=== PATIENT | female | born 1970 | race Caucasian/White ===

== ENCOUNTER 2021-01-17 13:14 | Outpatient (REF) | payer MEDICAID, SELFPAY ==
--- NOTE | 2021-01-17 10:30 | PAPFT_PTH ---
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
--- OUTSIDE RECORDS SUMMARY | 2021-01-17 13:28 | XMS_ITS ---
:1970 Author Care Team Providers Name Role Phone ANNALEE OMER General Surgeon [phone] GAYLE GLEASON Primary Care Provider [phone] Allergies Code Code System Name Reaction Severity Status Onset NKDA ? Medications Name Status Start Date Stop Date ? ? acetaminophen 300 mg-codeine 30 Active ? Not available mg tablet amoxicillin 500 mg capsule Completed 07/18/201407/18 1 (one) Cap: three times a day aspirin 81 mg tablet,delayed release Completed 09/05/2015 02/07/2016 1 (one) Tablet DR: daily calcipotriene 0.005 % topical cream Completed 12/11/2016 11/10/2017 1 (one) Application: bid - twice daily Chantix Continuing Month Box 1 Completed ? 0 04/07/2019 mg tablet Chantix Starting Month Box 0.5 Completed ? 0 04/07/2019 mg (11)-1 mg (42) tablets in dose pack ciprofloxacin 500 mg tablet Completed 04/07/201904/17 Take 500 mg twice a day by oral route for 5 days. clobetasol 0.05 % topical cream Completed 12/07/2016 11/10/2017 1 (one) Application: bid - twice daily Depo-Provera 150 mg/mL intramuscular suspension Completed 09/05/2015 11/10/2017 1 (one) Suspension: every 3 months Digest Probiotic (S.boulardii) 250 mg capsule Active ? Not available Take 1 capsule twice a day by oral route. gabapentin 100 mg capsule Completed 02/07/20162015 1 (one) Capsule: three times a day Golytely 236 gram-22.74 gram-6.74 gram-5.86 gram oral soluti on Completed 09/23/2015 02/07/2016 1 (one) For Solution For Solution: As directed hydrocodone 5 mg-acetaminophen Completed ? 0 11/30/2018 325 mg tablet hydromorphone 2 mg tablet Completed ? 03/05/ 2019 levothyroxine 125 mcg tablet Completed 08/15/2015 1 (one) Tablet Tablet: daily levothyroxine 150 mcg tablet Completed ? 12/2018 levothyroxine 175 mcg tablet Active ? Not available Take 1 tablet by mouth once daily for 90 days liothyronine 5 mcg tablet Active ? Not av ailable Take 1 tablet twice a day by oral route for 90 days. methocarbamol 500 mg tablet Completed ? 11/14 metoclopramide 10 mg tablet Completed 10/06/201610/15 1 (one) Tablet: see comments metronidazole 500 mg tablet Active ? Not available naproxen sodium 220 mg capsule Completed 09/05/2015 0 02/07/2016 2 (two) Capsule: bid - twice daily omeprazole 20 mg capsule,delayed release Completed 016 02/07/2016 1 (one) Capsule DR: daily Pain Relief (acetaminophen) 650 mg tablet,extended release Compl eted 08/27/2015 02/07/2016 1 (one) Tablet ER Tablet ER: every six hours, as needed prednisone 10 mg tablet Active ? Not avai lable prednisone 50 mg tablet Completed 02/07/2016 02/12/20 16 1 (one) Tablet: daily Sennacon 8.6 mg tablet Completed ? 9 Take 2 tablets every day by oral route as needed. vancomycin 125 mg capsule Active ? Not av ailable venlafaxine ER 37.5 mg capsule,extended release 24 hr Completed 04/07/2019 05/09/2019 Take 1 capsule every day by oral route for 90 days. venlafaxine ER 37.5 mg tablet,extended release 24 hr Completed ? 04/07/2019 Take 1 tablet every day by oral route for 90 days. Vitamin D2 Completed ? 04/07/2019 5,000 units po daily Vitamin D2 1,250 mcg (50,000 unit) capsule Completed ? 11/30/2018 Take 1 capsule every day by oral route. Vitamin D3 125 mcg (5,000 unit) tablet Active 9 Not available Take 1 tablet every day by oral route. Zithromax 250 mg tablet Completed 11/28/2015 12/02/19 16 1 (one) Tablet: daily Notes: med rec completed 04/06/19 -mso Problems Name Status Onset Date Source ? Menopause Active 02/08/2019 ? Colitis Active 05/09/2019 ? 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 Hypothyroidism Active ? History Rachel-William Syndrome Active ? History Insomnia Active ? History Pharyngitis Unknown ? History Gastritis Active ? History Irritable Bowel Syndrome Characterized Active ? History by Constipation Functional Diarrhea Active ? History Celiac Disease Active ? History Psoriasis Active ? History Backache Active ? History Generalized Hyperhidrosis Active ? Histor y Anesthesia of Skin Unknown ? History Flushing Unknown ? History Chest Pain Active ? History Heartburn Active ? History Dysphagia Active ? History Care Unknown ? History Family Planning Surveillance Active ? His tory Contraception Care Management Unknown ? Hi story Adult Health Examination Unknown ? History Screening for Cardiovascular System Unknown ? History Disease Procedure by Method Unknown ? History Pain of Right Shoulder Joint Active ? His tory Right Side Sciatica Active ? History Contraception Care Unknown ? History Cyst of Right Breast Active ? History Procedures Date Name Performed by ? 04/06/2019 Colonoscopy Information not avai lable Notes: polyp of colon, colitis. 10/14 in [place], [place] 09/27/2018 Appendectomy Laparoscopic Information no t available 06/09/2016 Egd Information not avai lable Notes: LA Grade A reflux esophagitis ? Tubal Ligation Information not avai lable Notes: (1996) 10/18/2018 MAMMO, Screening, Tomosynthesis, [facility] (Internal) Bilateral [address] [place] [address] (Work Place) 09/21/2019 MAMMO, Screening, Tomosynthesis, [facility] (Internal) Bilateral [address] [place] [address] (Work Place) 08/21/2020 MAMMO, Screening, Tomosynthesis, [facility] (Internal) Bilateral [address] [place] [address] (Work Place) Results Lab Results Date Name Specimen Result Interpretation Description Value Range Status Address ? 08/19/2020 TSH, Serum S Low Tsh <0.05 0.47-4.68 Final [place] or Plasma u[IU]/mL u[IU]/mL [facility] L ab (Internal) : [address] 08/19/2020 T4, Free, S ? Ft4 1.93 NG/dL 0.78-2.19 Fin [place] Serum NG/dL [facility] L ab (Internal) : [address] 08/19/2020 T3, Total, S ? T3, 163 NG/dL 97-169 Final [place] Serum Total NG/dL [facility] L ab (Internal) : [address] 08/31/2019 Lactoferrin STL - Lactof negative negative Fin al [place] , severo, [facility] , Stool by (Internal ): Jade [address] 06/17/2019 CBC W/ Auto BLD - Wbc 8.1 10*3/uL 5.0-10.0 F inal [place] Diff 10*3/uL [facility] L ab (Internal) : [address] ? ? BLD - Rbc 4.72 10*6/uL 4.10-5.30 Final N orth 10*6/uL [facility] L ab (Internal) : [address] ? ? BLD - Hgb 15.2 g/dL 12.0-16.0 Final Nort h g/dL [facility] L ab (Internal) : [address] ? ? BLD - Hct 45.5 % 37.0-47.0 Final [facility] L ab (Internal) : [address] ? ? BLD High Mcv 96.4 fL 80.0-96.0 Final [facility] L ab (Internal) : [address] ? ? BLD High Mch 32.2 pg 26.0-32.[address] [facility] L ab (Internal) : [address] ? ? BLD - Mchc 33.4 g/dL 31.0-35.0 Final Nort h g/dL [facility] L ab (Internal) : [address] ? ? BLD - Rdw 12.2 % 11.5-14.5 Final [facility] L ab (Internal) : [address] ? ? BLD - Plt 337 10*3/uL 130-450 Final Nort h 10*3/uL [facility] (Internal[facility] : [address] ? ? BLD - Anc 4.19 10*3/uL ? Final Nort h [facility] L ab (Internal) : [address] [place] t ? ? BLD - Neutro 51.9 % 40.0-75.0 Final [facility] L ab (Internal) : [address], [place] ? ? BLD - Lymph 34.9 % 20.0-50.0 Final [facility] L ab (Internal) : [address], [place] t ? ? BLD - [place] 5.4 % 2.0-10.0 % Final [facility] L ab (Internal) : [address] ? ? BLD - Eos 5.8 % 1.0-6.0 % Final [facility] L ab (Internal) : [address] ? ? BLD High Baso 1.6 % 0.0-1.0 % Final [facility] L [facility] (Internal) : [address] ? ? BLD - Ig 0.4 % 0.0-0.9 % Final [facility] (Internal) : [address], [place] t 06/17/2019 CMP, Serum S - g/r 93 mg/dL 74-106 Final North or Plasma mg/dL [facility] L ab (Internal) : [address], [place] ? ? S High Bun 20 mg/dL 7-17 mg/dL Final Nort h [facility] L ab (Internal) : [address] ? ? S - Crea 0.60 mg/dL 0.52-1.04 Final Nor th mg/dL [facility] L ab (Internal) : [address] ? ? S - Ca 9.5 mg/dL 8.4-10.2 Final North mg/dL [facility] L ab (Internal) : [address] ? ? S - Na 138 mmol/L 137-145 Final North mmol/L [facility] L ab (Internal) : [address] ? ? S - K 4.3 mmol/L 3.5-5.1 Final North mmol/L [facility] L ab (Internal) : [address] [place] t ? ? S - Cl 101 mmol/L 98-107 Final [place] mmol/L [facility] L ab (Internal) : [address] ? ? S - Tco2 28.0 mmol/L 22.0-30.0 Final No rth mmol/L [facility] L ab (Internal) : [address] [place] t ? ? S - Tp 7.5 g/dL 6.3-8.2 Final [place] g/dL [facility] L ab (Internal) : [address] [place] t ? ? S - Alb 4.1 g/dL 3.5-5.0 Final [place] g/dL [facility] L ab (Internal) : [address] [place] t ? ? S - Tbil 0.5 mg/dL 0.2-1.3 Final [place] mg/dL [facility] L ab (Internal) : [address], [place] t ? ? S - Alp 84 U/L 50-136 U/L Final [facility] L ab (Internal) : [address] [place] t ? ? S - Alt 34 U/L 9-52 U/L Final [place] (Sgpt) [facility] L [facility] (Internal) : [address], [place] t ? ? S - Ast 31 U/L 14-36 U/L Final [place] (Sgot) [facility] L [facility] (Internal) : [address] 06/17/2019 ESR BLD - Esr 1 mm/h 0-30 mm/h Final Nor th (Erythrocyt Count ry e Hospital L ab Sedimentati (Inte rnal): on Rate), [address] [place] t 06/06/2019 C Diff STOOL ABNORMA C. positive negative Final N orth Toxin L Diff [facility], ([facility] Hospital L ab Qual, PCR, (Inter nal): Stool [address] 05/11/2019 Fecal STL - Occ negative negative Final No rth Occult Bld [facility] Blood, Hospital L ab Stool (Internal) : [address] 05/11/2019 Enteric STL - [place] see comments ? Final [place] Bacteria, jason [facility] Organism PCR Hospital Lab Specific (Interna l): Culture, [address] ? ? STL - Shigel see comments ? Final Nor th la PCR [facility] L ab (Internal) : [address] ? ? STL - Campyl see comments ? Final Nor th obacter [facility] L ab (Internal) : [address] ? ? STL - Shiga see comments ? Final Nort h Toxin [facility] (Internal) : [address] 05/11/2019 Ova + STL - Specim (see note) ? Final N orth Parasites, en Countr y [facility] Lab Microscopy, tion (Inte rnal): Stool [address] t ? ? STL - Result (see note) ? Final [facility] ab (Internal) : [address] t ? ? STL - Report (see note) ? Final [facility] (Internal) : [address] 05/11/2019 C Diff STOOL ABNORMA C. positive negative Final N orth Toxin L Diff [facility], ([facility] Hospital ab Qual, PCR, (Inter nal): Stool [address] 05/10/2019 CBC W/ Auto BLD - Wbc 8.2 10*3/uL 5.0-10.0 F inal [place] Diff 10*3/uL [facility] ab (Internal) : [address] ? ? BLD - Rbc 4.58 10*6/uL 4.10-5.30 Final N orth 10*6/uL [facility] ab (Internal) : [address] ? ? BLD - Hgb 14.8 g/dL 12.0-16.0 Final Nort h g/dL [facility] ab (Internal) : [address] [place] t ? ? BLD - Hct 44.4 % 37.0-47.0 Final [place] % [facility] ab (Internal) : [address] [place] t ? ? BLD High Mcv 96.9 fL 80.0-96.0 Final [facility] ab (Internal) : [address] [place] t ? ? BLD High Mch 32.3 pg 26.0-32.0 Final [facility] pg [facility] (Internal) : [address] ? ? BLD - Mchc 33.3 g/dL 31.0-35.0 Final Nort h g/dL [facility] L ab (Internal) : [address] ? ? BLD - Rdw 12.2 % 11.5-14.5 Final [facility] L ab (Internal) : [address] ? ? BLD - Plt 318 10*3/uL 130-450 Final Nort h 10*3/uL [facility] L ab (Internal) : [address], [place] ? ? BLD - Anc 5.32 10*3/uL ? Final Nort [facility] L ab (Internal) : [address] ? ? BLD - Neutro 64.7 % 40.0-75.0 Final [facility] L ab (Internal) : [address] ? ? BLD - Lymph 20.7 % 20.0-50.0 Final [facility] L ab (Internal) : [address], [place] ? ? BLD - [place] 7.9 % 2.0-10.0 % Final [facility] L ab (Internal) : [address] ? ? BLD - Eos 5.2 % 1.0-6.0 % Final [facility] L ab (Internal) : [address] ? ? BLD High Baso 1.1 % 0.0-1.0 % Final [facility] L ab (Internal) : [address] ? ? BLD - Ig 0.4 % 0.0-0.9 % Final [facility] L ab (Internal) : [address] t 05/10/2019 CMP, Serum S - g/r 104 mg/dL 74-106 Final North or Plasma mg/dL [facility] L ab (Internal) : [address] ? ? S - Bun 12 mg/dL 7-17 mg/dL Final Nort h [facility] L ab (Internal) : [address] ? ? S - Crea 0.60 mg/dL 0.52-1.04 Final [facility] th mg/dL [facility] (Internal) : [address] ? ? S - Ca 9.4 mg/dL 8.4-10.2 Final [place] mg/dL [facility] (Internal) : [address] ? ? S - Na 140 mmol/L 137-145 Final [place] mmol/L [facility] (Internal) : [address] ? ? S - K 4.2 mmol/L 3.5-5.1 Final [place] mmol/L [facility] (Internal) : [address] ? ? S - Cl 105 mmol/L 98-107 Final [place] mmol/L [facility] (Internal) : [address] ? ? S - Tco2 27.0 mmol/L 22.0-30.0 Final No rth mmol/L [facility] (Internal) : [address] t ? ? S - Tp 7.4 g/dL 6.3-8.2 Final [place] g/dL [facility] (Internal) : [address] ? ? S - Alb 4.2 g/dL 3.5-5.0 Final [place] g/dL [facility] (Internal) : [address] ? ? S - Tbil 1.2 mg/dL 0.2-1.3 Final [place] mg/dL [facility] (Internal) : [address] ? ? S - Alp 83 U/L 50-136 U/L Final [facility] L ab (Internal) : [address] ? ? S - Alt 35 U/L 9-52 U/L Final [place] (Sgpt) [facility] L ab (Internal) : [address] ? ? S - Ast 27 U/L 14-36 U/L Final [place] (Sgot) [facility] L [facility] (Internal) : [address] t 05/10/2019 CRP, High S High Rcrp 0.33 mg/dL 0.10-0.30 Fin al [place] Sensitivity mg/dL Count ry , Serum or Hospit al Lab Plasma (Internal) : [address] 04/07/2019 Cbc BLD - Wbc 6.9 10*3/uL 5.0-10.0 Final North 10*3/uL [facility] L ab (Internal) : [address] ? ? BLD Low Rbc 3.71 10*6/uL 4.10-5.30 Final N orth 10*6/uL [facility] L ab (Internal) : [address] ? ? BLD - Hgb 12.1 g/dL 12.0-16.0 Final Nort h g/dL [facility] L ab (Internal) : [address] ? ? BLD Low Hct 36.1 % 37.0-47.0 Final [facility] L ab (Internal) : [address] ? ? BLD High Mcv 97.3 fL 80.0-96.0 Final [facility] L ab (Internal) : [address] ? ? BLD High Mch 32.6 pg 26.0-32.0 Final [facility] L ab (Internal) : [address] ? ? BLD - Mchc 33.5 g/dL 31.0-35.0 Final Nort h g/dL [facility] L ab (Internal) : [address] ? ? BLD - Rdw 12.1 % 11.5-14.5 Final [facility] L ab (Internal) : [address] ? ? BLD - Plt 244 10*3/uL 130-450 Final Nort h 10*3/uL [facility] L ab (Internal) : [address] ? ? BLD - Anc 3.96 10*3/uL ? Final Nort h [facility] L ab (Internal) : [address] 04/07/2019 BMP, Serum S - g/r 101 mg/dL 74-106 Final North or Plasma mg/dL [facility] L ab (Internal) : [address] ? ? S Low Bun <3 mg/dL 7-17 mg/dL Final Nort h [facility] L ab (Internal) : [address] ? ? S Low Crea 0.50 mg/dL 0.52-1.04 Final [facility] mg/dL [facility] (Internal) : [address] ? ? S - Ca 8.4 mg/dL 8.4-10.2 Final North mg/dL [facility] L ab (Internal) : [address] t ? ? S - Na 141 mmol/L 137-145 Final North mmol/L [facility] L ab (Internal) : [address] ? ? S - K 3.6 mmol/L 3.5-5.1 Final North mmol/L [facility] L ab (Internal) : [address] t ? ? S High Cl 110 mmol/L 98-107 Final [place] mmol/L [facility] L ab (Internal) : [address] ? ? S - Tco2 27.0 mmol/L 22.0-30.0 Final No rth mmol/L [facility] (Internal) : [address] 04/06/2019 Cbc BLD - Wbc 7.5 10*3/uL 5.0-10.0 Final [place] 10*3/uL [facility] (Internal) : [address] ? ? BLD Low Rbc 3.65 10*6/uL 4.10-5.30 Final N orth 10*6/uL [facility] (Internal) : [address] t ? ? BLD Low Hgb 11.9 g/dL 12.0-16.0 Final Nort h g/dL [facility] L ab (Internal) : [address] ? ? BLD Low Hct 35.5 % 37.0-47.0 Final [place] % [facility] L [facility] (Internal) : [address] ? ? BLD High Mcv 97.3 fL 80.0-96.0 Final [place] fL [facility] L [facility] (Internal) : [address] ? ? BLD High Mch 32.6 pg 26.0-32.0 Final [place] pg [facility] L ab (Internal) : [address] ? ? BLD - Mchc 33.5 g/dL 31.0-35.0 Final Nort h g/dL [facility] L ab (Internal) : [address] ? ? BLD - Rdw 12.3 % 11.5-14.5 Final [facility] % [facility] (Internal) : [address] ? ? BLD - Plt 243 10*3/uL 130-450 Final Nort h 10*3/uL [facility] (Internal) : [address] ? ? BLD - Anc 4.01 10*3/uL ? Final Nort [facility] (Internal) : [address] 04/06/2019 BMP, Serum S - g/r 103 mg/dL 74-106 Final North or Plasma mg/dL [facility] (Internal) : [address] ? ? S - Bun 7 mg/dL 7-17 mg/dL Final [facility] L ab (Internal) : [address] ? ? S - Crea 0.60 mg/dL 0.52-1.04 Final Nor th mg/dL [facility] L ab (Internal) : [address] ? ? S - Ca 8.4 mg/dL 8.4-10.2 Final [place] mg/dL [facility] (Internal) : [address] ? ? S - Na 138 mmol/L 137-145 Final North mmol/L [facility] L [facility] (Internal) : [address] ? ? S - K 3.7 mmol/L 3.5-5.1 Final North mmol/L [facility] L ab (Internal) : [address] ? ? S High Cl 109 mmol/L 98-107 Final North mmol/L [facility] L [facility] (Internal) : [address] ? ? S - Tco2 24.0 mmol/L 22.0-30.0 Final No rth mmol/L [facility] (Internal) : [address] 04/06/2019 Pathology TISS - Report results ? Final N orth Study below [facility] (Internal) : [address] 04/05/2019 CBC W/ Auto BLD High Wbc 13.3 10*3/uL 5.0-10.0 Final North Diff 10*3/uL [facility] L ab (Internal) : [address] ? ? BLD - Rbc 4.77 10*6/uL 4.10-5.30 Final N orth 10*6/uL [facility] (Internal) : [address] ? ? BLD - Hgb 15.3 g/dL 12.0-16.0 Final Nort h g/dL [facility] L ab (Internal) : [address] ? ? BLD - Hct 45.3 % 37.0-47.0 Final North % [facility] L ab (Internal) : [address] ? ? BLD - Mcv 95.0 fL 80.0-96.0 Final [facility] L ab (Internal) : [address] ? ? BLD High Mch 32.1 pg 26.0-32.0 Final [facility] L ab (Internal) : [address] ? ? BLD - Mchc 33.8 g/dL 31.0-35.0 Final Nort h g/dL [facility] L [facility] (Internal) : [address] ? ? BLD - Rdw 12.4 % 11.5-14.5 Final [facility] L ab (Internal) : [address] ? ? BLD - Plt 335 10*3/uL 130-450 Final Nort h 10*3/uL [facility] L ab (Internal) : [address] ? ? BLD - Anc 9.56 10*3/uL ? Final Nort h [facility] L ab (Internal) : [address] ? ? BLD - Neutro 72.1 % 40.0-75.0 Final [facility] L ab (Internal) : [address] ? ? BLD - Lymph 20.2 % 20.0-50.0 Final [facility] L ab (Internal) : [address] ? ? BLD - [place] 4.5 % 2.0-10.0 % Final [facility] L ab (Internal) : [address] ? ? BLD - Eos 1.9 % 1.0-6.0 % Final [facility] L ab (Internal) : [address] ? ? BLD - Baso 0.8 % 0.0-1.0 % Final [facility] L ab (Internal) : [address] ? ? BLD - Ig 0.5 % 0.0-0.9 % Final [facility] L [facility] (Internal) : [address] 04/05/2019 CMP, Serum S - g/r 101 mg/dL 74-106 Final North or Plasma mg/dL [facility] (Internal) : [address] ? ? S - Bun 14 mg/dL 7-17 mg/dL Final Nort [facility] (Internal) : [address] ? ? S - Crea 0.60 mg/dL 0.52-1.04 Final Nor th mg/dL [facility] (Internal) : [address] ? ? S - Ca 9.6 mg/dL 8.4-10.2 Final [place] mg/dL [facility] (Internal) : [address] ? ? S - Na 140 mmol/L 137-145 Final [place] mmol/L [facility] (Internal) : [address] ? ? S - K 3.9 mmol/L 3.5-5.1 Final [place] mmol/L [facility] (Internal) : [address] ? ? S - Cl 106 mmol/L 98-107 Final [place] mmol/L [facility] (Internal) : [address] ? ? S - Tco2 26.0 mmol/L 22.0-30.0 Final No rth mmol/L [facility] (Internal) : [address] ? ? S - Tp 7.6 g/dL 6.3-8.2 Final [place] g/dL [facility] (Internal) : [address] ? ? S - Alb 4.3 g/dL 3.5-5.0 Final [facility] g/dL [facility] (Internal) : [address] ? ? S High Tbil 1.4 mg/dL 0.2-1.3 Final [place] mg/dL [facility] (Internal) : [address] ? ? S - Alp 100 U/L 50-136 U/L Final [facility] L ab (Internal) : [address] ? ? S - Alt 34 U/L 9-52 U/L Final [place] (Sgpt) [facility] L [facility] (Internal) : [address] ? ? S - Ast 36 U/L 14-36 U/L Final [place] (Sgot) [facility] L [facility] (Internal) : [address] 04/05/2019 Urinalysis, UR - UA-col yellow pale Final [place] Dipstick, or yellow [facility] L ab Micro (Internal) : [address] ? ? UR - UA-kranthi clear clear Final [facility] Hospital L ab (Internal) : [address] ? ? UR - UA-spe 1.010 1.003-1.03 Final [facility] Grav [address] [facility] L ab (Internal) : [address] ? ? UR - UA-pH 6.0 [pH] 4.6-8.0 Final [place] [pH] [facility] L ab (Internal) : [address] t ? ? UR - UA-brock negative negative Final [place] k Est [facility] L ab (Internal) : [address] t ? ? UR - UA-nit negative negative [facility] : [address] t ? ? UR - UA-pro negative negative Final [facility] L ab (Internal) : [address] t ? ? UR - UA-glu negative negative Final [place] c [facility] L ab (Internal) : [address] t ? ? UR - UA-ket negative negative Final [facility] L ab (Internal) : [address] t ? ? UR - UA-uro normal normal Final [facility] Hospital L ab (Internal) : [address] t ? ? UR - UA-parrish negative negative Final [place] i [facility] L ab (Internal) : [address] t ? ? UR - UA-blo negative negative Final [place] od [facility] L ab (Internal) : [address] 04/05/2019 C Diff STL - C. negative negative Final No rth Toxin Diff [facility], ([facility] Hospital L ab Qual, PCR, (Inter nal): Stool [address] 04/05/2019 Enteric STL - [place] see comments ? Final [place] Bacteria, jason Country Organism PCR Hospital Lab Specific (Interna l): Culture, [address] t ? ? STL - Shig[place] see comments ? Final Nor th la PCR [facility] L ab (Internal) : [address] t ? ? STL - Campyl see comments ? Final Nor th obacter [facility] L ab (Internal) : [address] t ? ? STL - Shiga see comments ? Final Nort h Toxin [facility] L ab (Internal) : [address] 02/01/2019 CMP, Serum S - g/r 92 mg/dL 74-106 Final North or Plasma mg/dL [facility] L ab (Internal) : [address] t ? ? S - Bun 13 mg/dL 7-17 mg/dL Final [facility] L ab (Internal) : [address] ? ? S - Crea 0.70 mg/dL 0.52-1.04 Final [facility] mg/dL [facility] L ab (Internal) : [address] t ? ? S - Ca 9.4 mg/dL 8.4-10.2 Final North mg/dL [facility] L ab (Internal) : [address] t ? ? S - Na 139 mmol/L 137-145 Final North mmol/L [facility] L ab (Internal) : [address] t ? ? S - K 4.1 mmol/L 3.5-5.1 Final North mmol/L [facility] L ab (Internal) : [address] t ? ? S - Cl 104 mmol/L 98-107 Final North mmol/L [facility] L ab (Internal) : [address] t ? ? S - Tco2 29.0 mmol/L 22.0-30.0 Final No rth mmol/L [facility] L ab (Internal) : [address] ? ? S - Tp 7.4 g/dL 6.3-8.2 Final [place] g/dL [facility] L ab (Internal) : [address] [facility] ? ? S - Alb 4.2 g/dL 3.5-5.0 Final [place] g/dL [facility] L ab (Internal) : [address] [facility] ? ? S - Tbil 0.8 mg/dL 0.2-1.3 Final [place] mg/dL [facility] L ab (Internal) : [address] ? ? S - Alp 87 U/L 50-136 U/L Final [facility] L ab (Internal) : [address] ? ? S - Alt 24 U/L 9-52 U/L Final [place] (Sgpt) [facility] L ab (Internal) : [address], Adelina t ? ? S High Ast 40 U/L 14-36 U/L Final [place] (Sgot) [facility] L ab (Internal) : [address], [facility] 02/01/2019 TSH, Serum S Low Tsh <0.05 0.47-4.68 Final [place] or Plasma u[IU]/mL u[IU]/mL [facility] L ab (Internal) : [address] [facility] 02/01/2019 T4, Free, S - Ft4 1.13 NG/dL 0.78-2.19 Fin al [place] Serum NG/dL [facility] L ab (Internal) : [address], [facility] 02/01/2019 FSH S - Fsh 122.3 mIU/mL ? Final North (Follicle-s Count ry timulating Hospit al Lab Hormone), ([employer] Sales Rep al): Serum [address] [facility] 02/01/2019 Lh S - Lh 42.8 mIU/mL ? Final N orth (Luteinizin Count ry g Hormone), Hospi roderick Lab Serum (Internal) : [address] [facility] 02/01/2019 T3, Total, S - T3, 113 NG/dL 97-169 Final [place] Serum Total NG/dL [facility] L [facility] (Internal[facility] : [address] 02/01/2019 Prolactin, S - Prolac 6.5 NG/mL ? Final [place] Serum tin [facility] L ab (Internal) : [address] 02/01/2019 Venipunctur Blood ? Locati Left ? ? P_nc Primary e veno on Antecubital Care us [place]/Orl ea ns: [address], [place] ? ? Blood ? Needle 21g ? ? P_nc Prim yudy veno Vacutainer Care us [place]/Orl ea ns: [address], [place] ? ? Blood ? Number 1 ? ? P_nc Prim yudy veno of Care us Attempt [place]/Or yue s ns: [address], [place] ? ? Blood ? Succes Yes ? ? P_nc Prim yudy veno sful Care us [place]/Orl ea ns: [address], [place] ? ? Blood ? Dressi Pressure ? ? P_nc Pr imary veno ng Band-aid Care us Applied [place]/Or yue ns: [address], [place] ? ? Blood ? Initia cs ? ? P_nc Prim yudy veno ls Care us [place]/Orl ea ns: [address], [place] 11/13/2018 Urinalysis, UR - UA-col yellow pale Final [place] Dipstick, or yellow [facility] Hospital L ab Micro (Internal) : [address] ? ? UR ABNORMA UA-kranthi cloudy clear Final [facility] ear [facility] L ab (Internal) : [address] ? ? UR - UA-spe 1.015 1.003-1.03 Final [place] c Grav 5 [facility] L ab (Internal) : [address] ? ? UR - UA-pH 7.5 [pH] 4.6-8.0 Final [place] [pH] [facility] L ab (Internal) : [address] ? ? UR - UA-brock negative negative Final [place] k Est [facility] L ab (Internal) : [address] ? ? UR - UA-nit negative negative Final [place] rite [facility] L ab (Internal) : [address] t ? ? UR - UA-pro negative negative Final [place] t [facility] L ab (Internal) : [address] t ? ? UR - UA-glu negative negative Final [place] c [facility] ab (Internal) : [address] t ? ? UR - UA-ket negative negative Final [place] one [facility] ab (Internal) : [address] t ? ? UR - UA-uro normal normal Final [place] parrish [facility] L ab (Internal) : [address] t ? ? UR - UA-parrish negative negative Final [place] i [facility] L ab (Internal) : [address] t ? ? UR - UA-blo negative negative Final [place] od [facility] L ab (Internal) : [address] 11/13/2018 UR - Hcgu negative negative Final [place] Test, Urine Count [facility] ab (Internal) : [address] 11/13/2018 Urinalysis, UR - UA-WBC 0-3 [hpf] 0-3 [hpf] F inal [place] Microscopic Count [facility] L ab (Internal) : [address] t ? ? UR - UA-RBC 0-2 [hpf] 0-2 [hpf] Final Nor [facility] L ab (Internal) : [address] t ? ? UR ABNORMA UA-bertha few [hpf] none seen Final No rth L teria [hpf] [facility] ab (Internal) : [address] t ? ? UR ABNORMA UA-epi moderate none seen Final Nor th L thelial [hpf] [hpf] [facility] ab (Internal) : [address] t ? ? UR - UA-muc none seen none seen Final Nor th us [hpf] [hpf] [facility] ab (Internal) : [address] t ? ? UR - Amorph many [hpf] ? Final [facility] ab (Internal) : [address] 11/13/2018 Culture UR - Final microbiology ? Final [place] ([place] results Country Count), Hospital Lab Urine (Internal) : [address] 10/19/2018 Thyroid S Low Tsh <0.02 0.47-4.68 Final No rth [place], u[IU]/mL u[IU]/mL Coun [facility] Hospital L ab (Internal) : [address] Adelina t 10/19/2018 T4, Free, S - Ft4 1.88 NG/dL 0.78-2.19 Fin [facility] Serum NG/dL [facility] L ab (Internal) : [address] vincent 09/27/2018 CBC W/ Auto BLD High Wbc 14.9 10*3/uL 5.0-10.0 Final [place] Diff 10*3/uL [facility] L ab (Internal) : [address] [place] ? ? BLD - Rbc 4.97 10*6/uL 4.10-5.30 Final N orth 10*6/uL [facility] L ab (Internal) : [address] [place] ? ? BLD - Hgb 15.8 g/dL 12.0-16.0 Final Nort h g/dL [facility] L ab (Internal) : [address] t ? ? BLD High Hct 48.3 % 37.0-47.0 Final [facility] L ab (Internal) : [address] ? ? BLD High Mcv 97.2 fL 80.0-96.0 Final [facility] L ab (Internal) : [address] ? ? BLD - Mch 31.8 pg 26.0-32.[address] [facility] L ab (Internal) : [address] [place] ? ? BLD - Mchc 32.7 g/dL 31.0-35.0 Final Nort h g/dL [facility] L ab (Internal) : [address] ? ? BLD - Rdw 12.9 % 11.5-14.5 Final [facility] L ab (Internal) : [address] [place] ? ? BLD - Plt 377 10*3/uL 130-450 Final Nort h 10*3/uL [facility] L ab (Internal) : [address] ? ? BLD - Anc 11.83 ? Final North 10*3/uL [facility] L ab (Internal) : [address] t ? ? BLD High Neutro 79.4 % 40.0-75.0 Final [facility] (Internal[facility] : [address] t ? ? BLD Low Lymph 12.1 % 20.0-50.0 Final [facility] L [facility] (Internal) : [address] t ? ? BLD - [place] 5.0 % 2.0-10.0 % Final [facility] L ab (Internal) : [address] t ? ? BLD - Eos 2.3 % 1.0-6.0 % Final [facility] L ab (Internal) : [address] t ? ? BLD - Baso 0.9 % 0.0-1.0 % Final [facility] L ab (Internal) : [address] t ? ? BLD - Ig 0.3 % 0.0-0.9 % Final [facility] L ab (Internal) : [address] t 09/27/2018 CMP, Serum S High g/r 139 mg/dL 74-106 Final [place] or Plasma mg/dL [facility] L [facility] (Internal) : [address] t ? ? S - Bun 13 mg/dL 7-17 mg/dL Final [facility] (Internal) : [address] t ? ? S - Crea 0.60 mg/dL 0.52-1.04 Final Nor th mg/dL [facility] L ab (Internal) : [address] t ? ? S - Ca 9.4 mg/dL 8.4-10.2 Final [place] mg/dL [facility] L ab (Internal) : [address] t ? ? S - Na 139 mmol/L 137-145 Final [place] mmol/L [facility] L ab (Internal) : [address] t ? ? S - K 4.3 mmol/L 3.5-5.1 Final [place] mmol/L [facility] L [facility] (Internal) : [address] t ? ? S - Cl 100 mmol/L 98-107 Final [place] mmol/L [facility] L ab (Internal) : [address] t ? ? S - Tco2 27.0 mmol/L 22.0-30.0 Final No rth mmol/L [facility] L ab (Internal) : [address] ? ? S - Tp 7.8 g/dL 6.3-8.2 Final [place] g/dL [facility] L ab (Internal) : [address] ? ? S - Alb 4.6 g/dL 3.5-5.0 Final [place] g/dL [facility] L ab (Internal) : [address] ? ? S - Tbil 0.8 mg/dL 0.2-1.3 Final [place] mg/dL [facility] L ab (Internal) : [address] ? ? S - Alp 90 U/L 50-136 U/L Final [facility] L ab (Internal) : [address] ? ? S - Alt 25 U/L 9-52 U/L Final [place] (Sgpt) [facility] L ab (Internal) : [address] ? ? S - Ast 28 U/L 14-36 U/L Final [place] (Sgot) [facility] L ab (Internal) : [address] 09/27/2018 Lipase, S - Lip 109 U/L 23-300 U/L Final [place] Serum or [facility] Plasma Hospital L ab (Internal) : [address] 09/27/2018 Urinalysis, UR - UA-col yellow pale Final [place] Dipstick, or yellow [facility] L [facility] Micro (Internal) : [address] ? ? UR - UA-kranthi clear clear Final [place] ear [facility] L ab (Internal) : [address] ? ? UR - UA-spe <=1.005 1.003-1.03 Final Nort h c Grav 5 [facility] L ab (Internal) : [address] ? ? UR - UA-pH 8.0 [pH] 4.6-8.0 Final [place] [pH] [facility] L ab (Internal) : [address] ? ? UR - UA-brock negative negative Final [place] k Est [facility] L ab (Internal) : [address], [place] ? ? UR - UA-nit negative negative Final [place] rite [facility] L ab (Internal) : [address] t ? ? UR - UA-pro negative negative Final [place] t [facility] L ab (Internal) : [address] t ? ? UR - UA-glu negative negative Final [place] c [facility] L ab (Internal) : [address] t ? ? UR - UA-ket negative negative Final [place] one [facility] L ab (Internal) : [address] t ? ? UR - UA-uro normal normal Final [place] parrish [facility] L ab (Internal) : [address] t ? ? UR - UA-parrish negative negative Final [place] i [facility] L ab (Internal) : [address] t ? ? UR ABNORMA UA-blo small negative Final [facility] od [facility] L ab (Internal) : [address] 09/27/2018 Urinalysis, UR - UA-WBC 0-3 [hpf] 0-3 [hpf] F inal [place] Microscopic Count [facility] L ab (Internal) : [address] t ? ? UR - UA-RBC 0-2 [hpf] 0-2 [hpf] Final Nor [facility] L ab (Internal) : [address] ? ? UR ABNORMA UA-bertha few [hpf] none seen Final No rth L teria [hpf] [facility] ab (Internal) : [address] ? ? UR ABNORMA UA-epi few [hpf] none seen Final No rth L thelial [hpf] [facility] ab (Internal) : [address] t ? ? UR - UA-muc none seen none seen Final Nor us [hpf] [hpf] [facility] ab (Internal) : [address] 09/27/2018 Culture UR - Final microbiology ? Final [place] ([place] results Country Count), Hospital Lab Urine (Internal) : [address] 09/27/2018 UR - Hcgu negative negative Final [place] Test, Urine Count [facility] ab (Internal) : [address] 09/27/2018 Pathology TISS - Report results ? Correcte d [place] Study below [facility] L ab (Internal) : [address] Adelina vincent 07/19/2018 CBC W/ Auto BLD High Wbc 13.3 10*3/uL 5.0-10.0 Final [place] Diff 10*3/uL [facility] L ab (Internal) : [address] ? ? BLD - Rbc 4.50 10*6/uL 4.10-5.30 Final N orth 10*6/uL [facility] L ab (Internal) : [address] ? ? BLD - Hgb 14.4 g/dL 12.0-16.0 Final Nort h g/dL [facility] L ab (Internal) : [address] [place] ? ? BLD - Hct 44.1 % 37.0-47.0 Final [facility] L ab (Internal) : [address] [place] ? ? BLD High Mcv 98.0 fL 80.0-96.0 Final [facility] Hospital L ab (Internal) : [address] ? ? BLD - Mch 32.0 pg 26.0-32.[address] [facility] L ab (Internal) : [address] ? ? BLD - Mchc 32.7 g/dL 31.0-35.0 Final Nort h g/dL [facility] L ab (Internal) : [address] t ? ? BLD - Rdw 12.4 % 11.5-14.5 Final [facility] L ab (Internal) : [address] t ? ? BLD - Plt 342 10*3/uL 130-450 Final Nort h 10*3/uL [facility] L ab (Internal) : [address] [place] ? ? BLD - Anc 9.23 10*3/uL ? Final Nort h [facility] L ab (Internal) : [address] t ? ? BLD - Neutro 69.5 % 40.0-75.0 Final [facility] L ab (Internal) : [address] ? ? BLD - Lymph 20.6 % 20.0-50.0 Final [facility] L ab (Internal) : [address] [facility] t ? ? BLD - [place] 4.7 % 2.0-10.0 % Final [facility] L ab (Internal) : [address] [facility] ? ? BLD - Eos 4.1 % 1.0-6.0 % Final [facility] L ab (Internal) : [address] [facility] ? ? BLD - Baso 0.7 % 0.0-1.0 % Final [facility] L ab (Internal) : [address] [facility] ? ? BLD - Ig 0.4 % 0.0-0.9 % Final [facility] L ab (Internal) : [address] [facility] 07/19/2018 Thyroid S Low Tsh <0.02 0.47-4.68 Final No rth [place], u[IU]/mL u[IU]/mL [facility] Hospital L ab (Internal) : [address] [facility] t 07/19/2018 T4, Free, S - Ft4 1.29 NG/dL 0.78-2.19 Fin [facility] Serum NG/dL [facility] L ab (Internal) : [address] [facility] t 09/20/2017 Venipunctur BLD ? Venpn* ? ? Final [facility] L ab (Internal) : [address] [facility] t 09/20/2017 T4, Free, S ? Ft4 2.01 NG/dL 0.78-2.19 [facility] Serum NG/dL [facility] L ab (Internal) : [address] [facility] t 09/20/2017 TSH, Serum S Low Tsh <0.05 0.47-4.68 Final [facility] Plasma u[IU]/mL u[IU]/mL [facility] L ab (Internal) : [address] [facility] t 07/26/2017 Venipunctur BLD ? Venpn* ? ? Final [facility] L ab (Internal) : [address] [facility] t 07/26/2017 T3, Total, S Low T3, 93 NG/dL 97-169 Final [place] Serum Total NG/dL [facility] L ab (Internal) : [address] [facility] t 07/26/2017 T4, Free, S ? Ft4 1.16 NG/dL 0.78-2.19 Fin [facility] Serum NG/dL [facility] L ab (Internal) : [address] [facility] t 07/26/2017 TSH, Serum S High Tsh 7.37 0.47-4.68 Final [place] or Plasma u[IU]/mL u[IU]/mL [facility] L ab (Internal) : [address] [facility] 05/14/2017 Venipunctur BLD ? Venpn* ? ? Final [facility] L ab (Internal) : [address] [facility] 05/14/2017 T4, Free, S ? Ft4 1.64 NG/dL 0.78-2.19 Fin [facility] Serum NG/dL [facility] L ab (Internal) : [address] [facility] 05/14/2017 TSH, Serum S Low Tsh 0.24 0.47-4.68 Final [place] or Plasma u[IU]/mL u[IU]/mL [facility] L ab (Internal) : [address] [facility] t 05/14/2017 T3, Total, S ? T3, 135 NG/dL 97-169 Final [place] Serum Total NG/dL [facility] L ab (Internal) : [address] [facility] 02/11/2017 Venipunctur BLD ? Venpn* ? ? Final [facility] L ab (Internal) : [address] [facility] t 02/11/2017 T3, Free, S ? T3, 4.34 pg/mL 2.8-5.3 Final [place] Serum or Free pg/mL [facility] Hospital L ab (Internal) : [address] [facility] t 02/11/2017 TSH, Serum S ? Tsh 1.04 0.47-4.68 Final [place] or Plasma u[IU]/mL u[IU]/mL [facility] L ab (Internal) : [address] [facility] t 02/11/2017 T4, Free, S ? Ft4 1.28 NG/dL 0.78-2.19 Fin [facility] Serum NG/dL [facility] L ab (Internal) : [address] [facility] 12/10/2016 Venipunctur BLD ? Venpn* ? ? Final [facility] L ab (Internal) : [address] [facility] 12/10/2016 TSH, Serum S ? Tsh 0.74 0.47-4.68 Final [place] or Plasma u[IU]/mL u[IU]/mL [facility] L ab (Internal) : [address] [facility] 11/09/2016 Venipunctur BLD ? Venpn* ? ? Final [facility] L ab (Internal) : [address] [facility] 11/09/2016 TSH, Serum S ? Tsh 0.66 0.47-4.68 Final [place] or Plasma u[IU]/mL u[IU]/mL [facility] Hospital L ab (Internal) : [address], [facility] Past Encounters None recorded. Social History Tobacco Smoking Status Current Every Day Smoker Vaccine List Vaccine Type COVID-19, mRNA, LNP-S, PF, 100 mcg/0.5 m L dose 11/14/2020 influenza, injectable, quadrivalent 06/05/2020?0.5 mL influenza, injectable, quadrivalent, pre servative free 05/09/2019?0.5 mL influenza, seasonal, injectable 06/06/2009?0.5 mL 06/02/2017?0.5 mL influenza, seasonal, injectable, preserv ative free 06/09/2013 novel [id number], all formulation s 05/29/2009?0.5 mL 06/06/2009 Td (adult), adsorbed 11/30/2018 Tdap 08/30/2012 Plan of Care Reminders Provider Appointments None ? ? recorded. Lab None ? ? recorded. Referral None ? ? recorded. Procedures None ? ? recorded. Surgeries None ? ? recorded. Imaging None ? ? recorded. Vitals 05/17/2019 02:20PM Follow Up 20 Height Weight BMI Blood Pressure 165.1 cm 84.82 kg 31.1 kg/m2 118/80 mm[Hg] 05/09/2019 03:40PM Follow Up 20 Height Weight BMI Blood Pressure 165.1 cm 83.91 kg 30.8 kg/m2 110/80 mm[Hg] 02/01/2019 12:40PM Follow Up 20 Height Weight BMI Blood Pressure 165.1 cm 82.55 kg 30.3 kg/m2 106/80 mm[Hg] 11/30/2018 09:40AM Follow Up 20 Height Weight BMI Blood Pressure 165.1 cm 83.46 kg 30.6 kg/m2 104/74 mm[Hg] 10/19/2018 02:30PM Office 15 Height 165.1 cm 10/18/2018 10:40AM Follow Up 20 Height Weight BMI Blood Pressure 165.1 cm 86.18 kg 31.6 kg/m2 110/70 mm[Hg] 11/10/2017 Height Weight Blood Pressure 165.1 cm 98.88 kg 126/84 mm[Hg] 10/06/2016 Weight Blood Pressure 92.08 kg 118/76 mm[Hg] 03/19/2016 Weight Blood Pressure 89.81 kg 114/80 mm[Hg] 02/07/2016 Blood Pressure 118/82 mm[Hg] 10/28/2015 Height Weight Blood Pressure 165.1 cm 92.08 kg 140/80 mm[Hg] 09/05/2015 Height Weight Blood Pressure 165.1 cm 88.9 kg 126/76 mm[Hg] 05/16/2015 Height Weight Blood Pressure 165.1 cm 83.46 kg 126/86 mm[Hg] 07/18/2014 Weight Blood Pressure 81.19 kg 118/80 mm[Hg] 06/18/2014 Weight Blood Pressure 82.55 kg 112/72 mm[Hg] 08/21/2009 Weight Blood Pressure 69.4 kg 112/70 mm[Hg] 02/08/2006 Height Weight Blood Pressure 165.74 cm 64.41 kg 102/68 mm[Hg] 07/04/2004 Height Blood Pressure 170.18 cm 102/58 mm[Hg]
== END 2021-01-17 13:15 | disposition home or self-care (01) ==
LOC: LBN 13:14
PROVIDERS: PCP Nurse Practitioner; Visit Provider Nurse Practitioner
DX: Z12.4 Encounter for screening for malignant neoplasm of cervix (principal); Z11.51 Encounter for screening for human papillomavirus (HPV)
CPT/HCPCS: 88142; 87624

== ENCOUNTER 2021-03-17 02:02 | Outpatient (CLI) | payer MEDICAID, SELFPAY ==
[2021-03-17 12:21] LABS: Source Nasal/Nares
[2021-03-17 15:07] LABS: COVID-19 PCR Negative (Negative)
== END 2021-03-17 02:03 | disposition home or self-care (01) ==
LOC: LBO 02:02
PROVIDERS: PCP Nurse Practitioner; Visit Provider Surgery
DX: Z20.822 Contact with and (suspected) exposure to COVID-19 (principal); Z01.818 Encounter for other preprocedural examination
CPT/HCPCS: 87635

== ENCOUNTER 2021-03-18 05:58 | Day surgery (SDC) | payer MEDICAID, SELFPAY ==
--- NOTE | 2021-03-17 22:44 | PDOC.DSDIS_ITS ---
Discharge Plan Disposition Patient Disposition: HOME Condition: Good Discharge Details Reason For Visit: EGD Attending Provider: Brigitte Daniels Primary Care Provider: Neda Romo Home Meds and New Rx's Prescriptions: New pantoprazole [Protonix] 40 mg tablet,delayed release (DR/EC) 40 mg PO DAILY Qty: 30 RF: 12 Continued levothyroxine [Synthroid] 175 mcg tablet 175 mcg PO DAILY RF: 0 Saccharomyces boulardii [Digest Probiotic (S.boulardii)] 250 mg capsule 250 mg PO BID RF: 0 cholecalciferol (vitamin D3) 125 mcg (5,000 unit) tablet 125 mcg PO DAILY RF: 0 Discharge Instructions Additional Instructions: DSU Colonoscopy Post- Op Instructions Instructions for Everyone who is given Anesthesia: For your safety, please do the following for the next twenty-four (24) hours: *Do Not operate a motor vehicle (car, truck, motorcycle, etc.) *Do Not drink alcoholic beverages or use any recreational drugs for the first 24 hours or while taking pain medications. The medications in your body may have a reaction that can be dangerous. *Do Not make any important decisions or sign any important papers. Findings:duodentisi Schatski's ring /mild stricture. Dilation done Rx protonix liquid diet for 24hrs gargle w/ salt water 5-6x/day will have sore throat, up to 3 days. follow lifestyle changes Continue with lifestyle modifications: no alcohol, tobacco products, Aspirin or NSAID's (ibuprofen, Motrin, Naprosyn, aleve, etc), soda pop/any carbonated beverages, caffeine (including tea & chocolate), and acidic foods, (tomatoes, citrus, onions, peppermints) spicy or fried/fatty foods. Do not lie down for 30 minutes after eating, and do not eat 2 hours prior to bedtime. Avoid wearing tight fitting clothing/ belts Follow up:2 wks 1. No lifting over 20 pounds or strenuous activity for the first 72 hours after your procedure. After 72 hours there are no restrictions on your activity but you may feel fatigued for a few days. 2. After you arrive home you may have a light meal and return to your normal diet as you can tolerate it without feeling sick to your stomach. 3. You may have a bloated, gaseous feeling in your belly (abdomen) after a colonoscopy. Passing gas and belching will help. Walking or lying down on your left side with your knees flexed may relieve the discomfort. Call the office at [phone] (Office) or [phone] (Hospital) right away if you notice any of the following: a.Vomiting of blood or ?coffee ground stools?. b.Rectal bleeding 1Tbsp, blood clots or continuous bleeding. c.Severe belly (abdominal) pain. d.A hard distended belly (abdomen) and an inability to pass gas. 4. Please don?t expect to have a normal BM (bowel movement) for 2-3 days after your procedure. 5. If there are questions regarding the findings of your procedure, please contact your doctor 6. If you are unable to contact your doctor with a problem, contact the hospital at [phone]. 7. Continue all your regular medications unless directed otherwise. I understand the above instructions and have no questions. Signature of Patient or Adult Escort Name of Responsible Adult Escort Signature of Nurse Date/Time Activity:: no strnuous activity x 72 hrs Diet:: liquid diet for 24hrs Discharge Orders Discharge Orders: Discharge Order (Routine); Ordered 03/17/21 Ordered By: Brigitte Daniels DS: Diagnosis Discharge Diagnosis (1) Dysphagia: Status: Acute
--- NOTE | 2021-03-17 22:45 | W.PM.ENDDOP ---
Date of service: 03/18/21 Time of Service: 08:00 Endoscopy Report ANESTHESIA TYPE: General:No Airway PROCEDURE DESCRIPTION: After informed consent was obtained the patient was take to the procedure room and placed in a supine position. Monitors were applied and a time out was done. The patients name, date of , procedure type, allergies to medications and metal in their body was reviewed. A bite block was placed and the patient was sedated. Once sedated and comfortable the gastroscope was advanced through the oropharynx which was grossly normal into the esophagus. The proximal and mid-esophagus were normal. In the distal esophagus there was Schatzki's ring. I was able to pass the scope through the ring, however it was tight. A dilation was done up to 20 cm x 2 at 2 minutes apiece. There was no bleeding noted. The scope was advanced into the stomach and through the pylorus into the 3rd portion of the duodenum. The duodenum was noted to be moderate duodenitis. There was also a nodule in the duodenum. Biopsies were taken of the duodenum and the nodule. All specimen is retrieved and no bleeding is noted.. The scope was retracted back into the stomach and biopsies were done to rule out H. pylori. There is mild gastritis at the antrum in a striped Fashion. there were no ulcers. Additional biopsies were done. The scope was retroflexed. The cardia and fundus were noted to be normal. There no hiatal hernia noted. The scope w there is no as retracted back into the esophagus and biopsies were done of the GE junction to rule out Solis's. The Z line was regular. The GE junction was at 38cm. Dilation was done. A 16-18?20 balloon. With 2 passes noted for 2 minutes each. There is no bleeding noted. The scope was removed and the patient was woken up and taken back to [facility] in stable condition. Follow up: 2-3wks
[2021-03-18 06:12] VITALS: BP 115/68; PULSE 60; RESP 12; TEMP 36.4; O2SAT 98
[2021-03-18] MEDS: Lactated Ringers 1,000 ML 80 ML IV (06:40)
--- NOTE | 2021-03-18 07:00 | ANES.PREOP_ITS ---
General Info Date of Service Date Performed: 03/18/21 Height: 5 ft 5 in Weight: 99.2 kg Body Mass Index (BMI): 36.3 Surgical Procedure: Operation Date: 03/18/21 07:35 Proposed Procedures Side Surgeon p Gastroscopy possible dilation Brigitte Daniels, DO Meds Allergies and Home Medications Allergies Allergy/AdvReac Type Severity Reaction Status Date / Time No Known Allergies Allergy Verified 03/18/21 06:10 Home Medication Medication Instructions Recorded levothyroxine 175 mcg tablet 175 mcg PO DAILY 12/10/20 Saccharomyces boulardii 250 mg 250 mg PO BID 12/24/20 capsule cholecalciferol (vitamin D3) 125 125 mcg PO DAILY 12/24/20 mcg (5,000 unit) tablet Current Visit Medications: Current Medications Generic Name Dose Route Start Last Admin Trade Name Freq PRN Reason Stop Dose Admin Hyoscyamine Sulfate 0.125 mg 03/17/21 22:44 Hyoscyamine 0.125 Mg Sl/Oral/Chew SL DIRECTED PRN Ringer's Solution 1,000 mls @ 80 mls/hr 03/18/21 06:00 03/18/21 06:40 IV 04/16/21 23:59 80 mls/hr INFUSION JUDE Administration IV Miscellaneous Supplies 1 each 03/18/21 06:00 Iv Access IV 04/16/21 23:59 DIRECTED JUDE Ondansetron HCl 4 mg 03/17/21 22:44 Ondansetron 4 Mg/2 Ml Vial IVP Q4H PRN PRN Nausea / Vomiting Sodium Chloride 0 ml 03/18/21 06:00 Normal Saline Flush 10 Ml Syr IV 04/16/21 23:59 PRN PRN Sodium Chloride 0 ml 03/18/21 06:00 Normal Saline 10 Ml Vial IJ 04/16/21 23:59 DIRECTED PRN Sterile Water 0 ml 03/18/21 06:00 Water,Injection,Sterile 10 Ml Vial IJ 04/16/21 23:59 DIRECTED PRN PFSH Active Problems Active Problems: Problem Status Onset Code Pelvic pain R10.2 Pelvic pain R10.2 Plantar wart of right foot B07.0 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 Menopause ~02/08/19 Z78.0 Dysphagia R13.10 Psoriasis L40.9 Irritable bowel syndrome with constipation K58.1 Insomnia G47.00 Hypothyroidism E03.9 Medical History Medical History Cyst of right breast 2018(?) 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 Dysphagia endoscopy- [place] [facility] [place] Generalized hyperhidrosis Red's disease History of dog bite (~1981) Hypothyroidism Insomnia post menopausal Irritable bowel syndrome with constipation Menopause (~02/08/19) Psoriasis elbows and knees- tanning for control in summer Sciatica, right side Tubular adenoma of colon (~10/25/19) Surgical History Surgical History H/O colonoscopy (~04/06/19) polyp of colon, colitis 10/25/19 [facility] H/O tubal ligation (~2018) History of bunionectomy (~2001) History of esophagogastroduodenoscopy (EGD) (~06/09/16) LA Grade A reflux esophagitis History of laparoscopic appendectomy (~09/27/18) History of reversal of tubal ligation (~2002) Tobacco Smoking/Tobacco Use Status: Current every day Tobacco Type: cigarettes Passive smoking exposure: Yes Quit Status: considering quitting Second hand exposure: Yes Alcohol Alcohol Intake: current Alcohol intake frequency: a few times a month Alcohol type: wine Substance Use Substance use: Never Substance use type: does not use Vital Signs and Lab Results Vital Signs Most Recent Vital Signs in EMR: Most Recent Vital Signs Temp Pulse Resp BP Pulse Ox 36.4 C L 60 12 115/68 98 03/18/21 06:12 03/18/21 06:12 03/18/21 06:12 03/18/21 06:12 03/18/21 06:12 Point of Care Results Point of Care Results: POC- Test(urine) Negative 03/18/21 06:44 Lab Results Blood Type / Crossmatch: No Data to Display Complete Blood Count: No Data to Display Complete Metabolic Panel: No Data to Display Liver Function Panel: No Data to Display Coagulation Panel: No Data to Display Cardiac Panel: No Data to Display Arterial Blood Gas: No Data to Display Venous Blood Gas: No Data to Display Pancreas Panel: No Data to Display Thyroid Panel: No Data to Display Infectious Disease: Coronavirus (COVID-19)(PCR) Negative (Negative) 03/17/21 08:38 03/17/21 Coronavirus 2019 Source Nasal/Nares 03/17/21 08:38 03/17/21 Blood Cultures: No Data to Display Toxicology Panel: No Data to Display Panel: No Data to Display Anesthesia Assessment and Plan Anesthesia History Personal History: No History of Anesthesia Complications Family History: No Family History of Anesthesia Complications Exercise Tolerance Exercise Tolerance: Metabolic Equivalents>4 Pertinent Negatives Pertinent Negatives: No Symptoms of GERD, No Major Cardiovascular Symptoms or Complaints (Esopahageal spasms), No Major Pulmonary Symptoms or Complaints and No History of CVA/TIA Cardiac & Pulmonary Exam Cardiac Exam: Normal S1/S2 Heart Sounds Pulmonary Exam: Clear Bilateral Breath Sounds Airway Exam Known Difficult Airway: No Mallampati Class: 2 Mouth Opening: Normal (> 3cm) Thyromental Distance: Greater than 3 cm Neck Range of Motion: Full ROM Neck Circumference: Normal Teeth Condition: Normal Dentition ASA Classification ASA Score: ASA 2 Emergency Case?: No NPO Status NPO Status: NPO Clears >2 hours, Solids >8 hours and NPO Clear Liquids>2 hours Status Status: Not Per Patient Anesthesia Plan Resuscitation Status: Full Code Anesthesia Technique: General Anesthesia Airway Planned: Natural Airway Monitors Used: Standard Monitors
[2021-03-18 07:05] VITALS: BMI 36.3
--- NOTE | 2021-03-18 07:50 | STOM_PTH ---
PATIENT: Venice Gomez LOC: [facility] U#:[id number] AGE/SX: 50/F ROOM: RE03/18/[address]: Brigitte Daniels : 1970 BED: DIS: 03/18/2021 SPEC #: [id number] RECD: 03/18/21 12:47 STATUS: [facility] #: [id number] [place]: 03/18/21 07:[address]: Brigitte Daniels DEPT: Surgical Specimen RECD BY: Jing Sierra ENTERED: 03/18/21 12:52 SP TYPE: STOMACH OTHR DR: Neda Romo, PhD VP [employer] MANAGEMENT Tissues: 1 - BIOPSY BOWEL 2 - BIOPSY BOWEL 3 - BIOPSY BOWEL 4 - STOMACH BIOPSY 5 - STOMACH BIOPSY 6 - ESOPHAGUS BIOPSY 7 - STOMACH BIOPSY Procedures: GROSS AND MICRO LEVEL 4 IMMUNOPEROXIDASE STAIN Comments: [id number]
[2021-03-18 08:29] VITALS: BP 120/62; PULSE 66; RESP 14; TEMP 36.3; O2SAT 97
--- NOTE | 2021-03-18 08:30 | W.ANESPOSTOP ---
Postoperative Evaluation Date, Time and Location Date Performed: 03/18/21 Time Performed: 08:30 Patient Location: Day Surgery Unit Vital Signs Most Recent Imported Vital Signs: Most Recent Vital Signs Temp Pulse Resp BP Pulse Ox 36.4 C L 60 12 115/68 98 03/18/21 06:12 03/18/21 06:12 03/18/21 06:12 03/18/21 06:12 03/18/21 06:12 Most Recent Manually Entered Vital Signs: Adult Blood Pressure: 120/62 Heart Rate: 64 Respirations: 12 Oxygen Saturation (%): 97 Temperature (C): 36.3 C Pain Score (0-10 Scale): 0 Pain Score Most Recent Pain Score: Most Recent Pain Score Pain Level 0 03/18/21 06:12 Assessment Mental Status: Awake (Alert & Oriented to Patient Baseline) Airway and Respiratory Function: Patent airway with normal (patient baseline) respiratory exam Cardiovascular Function: Hemodynamically Stable Hydration Status: Adequately Hydrated Nausea & Vomiting: No Nausea or Vomiting Pain: Pt. Denies Any Pain Peripheral Nerve Block: Patient did not receive a nerve block
[2021-03-18 08:31] VITALS: BP 120/62; PULSE 64; RESP 12; TEMPC 36.3; O2SAT 97
[2021-03-18] MEDS: Normal Saline Flush 10 ML SYR IV (09:01)
[2021-03-18] MEDS: Pantoprazole 40 MG VIAL IVP (09:02)
[2021-03-18 09:06] VITALS: BP 120/72; PULSE 55; RESP 14; TEMP 36.1; O2SAT 100
== END 2021-03-18 09:35 | disposition home or self-care (01) ==
PROVIDERS: PCP Nurse Practitioner; Visit Provider Surgery
PROC: 0DJ68ZZ Inspection of Stomach, Via Natural or Artificial Opening Endoscopic (ICD-10-PCS; CPT 43235; principal; 2021-03-18 07:30)
DX: K22.2 Esophageal obstruction (principal); K29.80 Duodenitis without bleeding; K29.50 Unspecified chronic gastritis without bleeding; K31.89 Other diseases of stomach and duodenum
CPT/HCPCS: 43249; 43239; 81025; 88305; 88361; J2001; J2704

== ENCOUNTER 2021-05-06 00:14 | Outpatient (CLI) | payer MEDICAID, SELFPAY ==
--- NOTE | 2021-05-06 07:30 | DI.US_ITS ---
Exam(s) US PELVIS TRANSVAGINAL EXAM: US PELVIS TRANSVAGINAL CLINICAL HISTORY: pelvic pain,FAMILY H/O OVARIAN CA,R10.2. TECHNIQUE: Transabdominal and transvaginal pelvic ultrasound was performed using standard protocol. COMPARISON: No exams were available for comparison FINDINGS: KIDNEYS: Kidneys are symmetric in size. No evidence of renal calculi. No evidence of hydronephrosis. No renal mass or cyst identified. UTERUS: Position: Anteverted. Size: 5.3 long by 3.2 AP by 3.1 transverse cm Endometrium: 0.3 cm. Normal for patient's menstrual status. Myometrium: There is a 1 x 1.3 x 1.5 cm mass in the fundal uterus likely reflecting a fibroid. An ec hogenic focus within the mass likely reflects calcification within a degenerating fibroid. Cervix: Unremarkable. OVARIES: Right: 1.7 x 0.8 x 1.8 cm Cyst or mass: None. Left: 2.5 x 1.4 x 1.4 cm Cyst or mass: 1.4 x 1 x 1.3 cm simple left ovarian cyst. DOPPLER: Color: Symmetric and uniform flow to both ovaries. No hyperemia. Duplex: Normal ovarian arterial waveforms visualized. CUL-DE-SAC: Free fluid: None. Other: None. IMPRESSION: 1. Normal sonographic appearance of the kidneys. 2. Uterine fibroid. 3. 1.4 cm simple left ovarian cyst. DATA REPOSITORY:
== END 2021-05-06 00:34 ==
PROVIDERS: PCP Nurse Practitioner; Visit Provider Nurse Practitioner
DX: R10.2 Pelvic and perineal pain (principal); D25.9 Leiomyoma of uterus, unspecified; N83.292 Other ovarian cyst, left side
CPT/HCPCS: 76830; 76856

== ENCOUNTER 2021-05-20 01:55 | Outpatient (CLI) | payer MEDICAID, SELFPAY ==
[2021-05-20 08:31] LABS: Hemoglobin A1C 5.5 % (<5.7)
[2021-05-20 08:32] LABS: CREATININE 0.9 mg/dL (0.55-1.02); Calculated LDL 120 mg/dL (<100); Cholesterol 191 mg/dL (<200); HDL Cholesterol 38 mg/dL (40-60); TSH 0.22 uIU/mL (0.36-3.74); Triglyceride 169 mg/dL (<150)
[2021-05-20] MEDS: Breeza Beverage 473 ML BTL PO (09:54)
[2021-05-20] MEDS: Normal Saline - Diluent 50 ML VIAL IV (09:55)
[2021-05-20] MEDS: Omnipaque 350 MG/ML 100 ML BTL IJ (09:57)
--- NOTE | 2021-05-20 09:58 | DI.CT_ITS ---
Exam(s) CT ABDOMEN PELVIS W EXAM: CT ABDOMEN PELVIS W CLINICAL HISTORY: LLQ ABD AND PELVIC PAIN,R10.32,R10.2,UNREMARKABLE US TECHNIQUE: Imaging Protocol: Axial computed tomography images with coronal and sagittal reformatted images were created and reviewed CONTRAST MATERIAL: Intravenous: Omnipaque 350 Contrast volume:100 mL Oral: Yes COMPARISON: US US PELVIS TRANSVAGINAL from 05/06/2021 US US PELVIS TRANSVAGINAL from 05/06/2021 FINDINGS: ABDOMEN: Lung Bases: Basilar atelectasis and/or scarring. Liver: The liver does appear to be decreased in attenuation suggesting fatty infiltration. The liver measures 19 cm long. No measurable mass. Portal, Superior Mesenteric, and Splenic Veins: Unremarkable. Gallbladder and Biliary Tract: No radiodense calculus or dilation. Pancreas: Normal density, no abnormal calcifications or inflammatory process. Spleen: Normal. Adrenals: No masses seen. Kidneys: Normal size, contour and axis. No radiodense stones or obstructive uropathy. No masses seen. Abdominal Aorta: Abdominal portion non-dilated. Mild atherosclerosis. Bowel: No obstruction or bowel wall thickening. No evidence of appendicitis. Peritoneal Cavity: No ascites, collection or mesenteric inflammatory response. No free air. Lymph Nodes: Within normal limits. Bones: Within normal limits for the patient's age. Soft Tissues: Unremarkable. PELVIS: Bladder: Symmetric distention, no gross wall thickening. Reproductive Organs: 1.4 cm left ovarian simple cyst. The reproductive organs are otherwise unremark able. Lymph Nodes: Within normal limits. Bones: Within normal limits for the patient's age. IMPRESSION: 1. No acute abdominal or pelvic process. 2. Mild hepatomegaly and hepatic steatosis. RADIATION DOSE DELIVERED: 1,246.46mGy.cm Total DLP DATA REPOSITORY: All CT scans at this facility are submitted to the National Radiology Data Registry (NRDR) Dose Index Registry (DIR) with the [employer] (A[employer]). RADIATION OPTIMIZATION: All CT scans at this facility use at least one of these dose optimization te chniques: automated exposure control; mA and/or kV adjustment per patient size (includes targeted exa ms where dose is matched to clinical indication); or iterative reconstruction.
== END 2021-05-20 02:15 ==
PROVIDERS: PCP Nurse Practitioner; Visit Provider Nurse Practitioner
DX: R10.2 Pelvic and perineal pain (principal); R10.32 Left lower quadrant pain; Z13.1 Encounter for screening for diabetes mellitus; E06.3 Autoimmune thyroiditis; Z13.6 Encounter for screening for cardiovascular disorders; K76.0 Fatty (change of) liver, not elsewhere classified; R16.0 Hepatomegaly, not elsewhere classified
CPT/HCPCS: 80061; 74177; 82565; 83036; 84443; J3490

== ENCOUNTER → 2023-12-08 15:52 | Outpatient (CLI) | payer OTHER, SELFPAY ==
--- NOTE | 2023-12-08 | DI.RAD_ITS ---
Exam(s) XR SHOULDER RT COMPLETE 2+V EXAM: XR SHOULDER RT COMPLETE 2+V CLINICAL HISTORY: R SHOULDER STRAIN, [id number]. TECHNIQUE: 2D digital imaging was performed. COMPARISON: No exams were available for comparison FINDINGS: Five views: No evidence of fracture or dislocation nor soft tissue calcifications. Subacromial space unremarkabl e. No obvious degenerative changes in the glenohumeral joint. AC joint unremarkable. Clavicle unre markable. IMPRESSION: No acute osseous findings in the right shoulder. DATA REPOSITORY: RADIATION DOSE DELIVERED:
== END ==
PROVIDERS: PCP Nurse Practitioner Family; Visit Provider Physician Assistant Medical
DX: M25.511 Pain in right shoulder (principal)
CPT/HCPCS: 73030

== ENCOUNTER 2025-04-24 10:50 | Outpatient (CLI) | payer OTHER, SELFPAY ==
--- NOTE | 2025-04-24 13:14 | DI.MAMMO_ITS ---
Exam(s) MAMMO SCREENING EXAM: MAMMO SCREENING CLINICAL HISTORY: screening,z12.39. TECHNIQUE: Bilateral full field digital CC and MLO mammographic images were obtained with 3D tomosynthesis and utilizing computer aided detection (CAD). COMPARISON: Prior outside mammograms were reviewed. FINDINGS: There has been no significant change in the appearance and distribution of the fibroglandular tissue. Small benign-appearing nodules in both breasts which are probably benign intramammary lymph nodes are unchanged from prior mammograms. There are no new spiculated masses nor malignant appearing microcalcification groups. There is no significant architectural distortion nor skin thickening-retraction. IMPRESSION: No radiographic evidence of malignancy. Stable benign findings. BI-RADS Category 1 - Negative Breast Density - Category A - The breast are almost entirely fatty. Breast density Category C or D implies that the patient has dense breast tissue. Dense breast tissue can make it harder to find cancer on a mammogram. Dense breast tissue is also associated with an increased risk of breast cancer. This information about the result of the mammogram report was provided to the patient to raise their awareness. Use this report when you speak with the patient about their risks for breast cancer, which includes their family history. At that time, you may recommend additional screening tests (Ultrasound or MRI) as these tests may add significant information. A negative radiographic report should not delay biopsy if a dominant or clinically suspicious mass is present. Up to ten percent of cancers are not identified on mammography. A negative report may reinforce clinical impression. Adenosis and dense breasts may obscure an underlying neoplasm. False positive reports average 6 to 10%. Patient will receive a letter notifying them of these results.
== END 2025-04-24 11:10 ==
PROVIDERS: PCP Nurse Practitioner Family; Visit Provider Nurse Practitioner Family
DX: Z12.31 Encounter for screening mammogram for malignant neoplasm of breast (principal); R92.323 Mammographic fibroglandular density, bilateral breasts
CPT/HCPCS: 77063; 77067

== ENCOUNTER 2025-06-06 01:10 | Outpatient (CLI) | payer OTHER, SELFPAY ==
--- NOTE | 2025-06-06 07:45 | DI.RAD_ITS ---
Exam(s) XR FOOT LT COMPLETE EXAM: XR FOOT LT COMPLETE CLINICAL HISTORY: Left foot pain,M79.672. TECHNIQUE: 2D digital imaging was performed. Three views. COMPARISON: No exams were available for comparison FINDINGS: BONES: No acute fracture is present. No bony destructive lesion is seen. A screw is noted in the 1st metatarsal head likely related to prior bunionectomy. JOINTS: No dislocation present. There is mild hallux valgus. There are mild degenerative changes of the 1st MTP joint. SOFT TISSUE: Normal. IMPRESSION: Mild hallux valgus and postsurgical changes. Mild degenerative changes of 1st MTP joint. DATA REPOSITORY: RADIATION DOSE DELIVERED:
--- NOTE | 2025-06-06 07:45 | DI.RAD_ITS ---
Exam(s) XR FOOT RT COMPLETE EXAM: XR FOOT RT COMPLETE CLINICAL HISTORY: Right foot pain,M79.671. TECHNIQUE: 2D digital imaging was performed. Three views. COMPARISON: CR XR FOOT LT COMPLETE from 06/06/2025 FINDINGS: BONES: No acute fracture is present. No bony destructive lesion is seen. Small enthesophyte at the Achilles insertion. JOINTS: No dislocation present. Mild hallux valgus. Mild degenerative changes of the 1st MTP joint. Mild degenerative changes of the talonavicular joint. SOFT TISSUE: Normal. IMPRESSION: Mild degenerative changes. Mild hallux valgus. DATA REPOSITORY: RADIATION DOSE DELIVERED:
== END 2025-06-06 01:30 ==
LOC: DI 01:10
PROVIDERS: PCP Nurse Practitioner Family; Visit Provider Podiatrist
DX: M20.22 Hallux rigidus, left foot; M20.21 Hallux rigidus, right foot; M19.071 Primary osteoarthritis, right ankle and foot; M19.072 Primary osteoarthritis, left ankle and foot
CPT/HCPCS: 73630